=== PATIENT | male | born 1980 | race Caucasian/White ===

== ENCOUNTER 2018-11-15 15:51 | Emergency (ER) | payer SELFPAY ==
[~2018-11-15] VITALS: Wt 80.8 kg
[2018-11-15 16:01] VITALS: BP 140/80; PULSE 96; RESP 20
== END 2018-11-15 17:40 | disposition left against medical advice (07) ==
LOC: FTE 15:51
DX: Z53.21 Procedure and treatment not carried out due to patient leaving prior to being seen by health care provider (principal)